=== PATIENT | male | born 1960 | race Caucasian/White ===

== ENCOUNTER → 2016-11-13 | Outpatient (CLI) | payer BC ==
--- NOTE | 2016-11-13 16:57 | PN ---
This is a 54-year-old male patient coming in for a yearly check regarding his obstructive sleep apnea. 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 He is known to have mild ABIGAIL with an AHI of 13.7. He is currently on a CPAP pressure of 12 cm of water. He is still doing well. He is averaging around 6 hours of sleep every night. He goes to bed around 10, wakes up around 5 a.m. in the morning. No major hypersomnia or sleepiness during the day. No sleeping while driving. No drowsiness. Based on the compliance data over the past 30 days, the patient's CPAP use for more than 4 hours is 100%, which is 30 out of 30. His average CPAP use is 5.1 hours per night. He has lost around 22 pounds since last year. He has no specific complaints and no new onset comorbid conditions. HIS CURRENT VITAL SIGNS: BP is 143/77, pulse 100, respiration 16, temperature 98.0. BMI is 35.5. Weight is 207. Height is 5 feet 4 inches. Saturation 96% on room air. GENERAL APPEARANCE: Calm, comfortable. HEENT: Short neck, crowding of the posterior pharynx. No goiter or neck mass. LUNGS: Clear to auscultation. HEART: Sounds are regular rate and rhythm. Normal S1, S2. ABDOMEN: Soft, nontender. No organomegaly. EXTREMITIES: No edema. No cyanosis or clubbing. IMPRESSION: 1. Obstructive sleep apnea with an AHI of 13.5, still on a CPAP pressure of 12 cm of water. The treatment remains successful and the patient is very compliant. 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 3. Diabetes. 4. Hyperlipidemia. 5. Hypertension. 6. Obesity with interval 22-pound weight loss. Current BMI is 35. PLAN: 1. Treatment remains successful. No need for any CPAP pressure adjustments. 2. Continue full-face mask; this is being provided to this patient through [employer]. 3. Sleep hygiene measures are all appropriate. 4. Encourage further weight loss. 5. Will be clearing this patient, as the patient has no ongoing issues with his ABIGAIL treatment. No objections again for this patient to have his DOT certification from the ABIGAIL standpoint.
== END | disposition home or self-care (01) ==

== ENCOUNTER → 2018-04-08 | Outpatient (CLI) | payer BC ==
--- NOTE | 2018-04-08 15:18 | PN ---
PROGRESS NOTE 57-year-old male patient coming in for a followup regarding obstructive sleep apnea. 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 On today's evaluation, the patient's compliance data has been somewhat low. He tells me that he had sinusitis and he was unable to wear his CPAP mask because of an acute sinus infection. This may be true knowing that his compliance is improved over the past week as the patient was treated for his acute sinus infection. In general the compliance data over the past 30 days shows an average use of 4.6 hours per night and his CPAP use for more than 4 hours is . I realized the patient utilizing an older generation nose mask which is not comfortable and not causing the adequate seal that is needed for CPAP therapy. I switched him to a wisp nose mask and also given Mirage FX nose mask to try. Both were given samples from my office. Otherwise the patient is not having any major hypersomnia or sleepiness. Delong score is 2. He is averaging good 5-6 hours of sleep per night. He does not fall asleep while driving or doing routine day-to-day activity. As far as his body weight, the patient is stable at 218 pounds which is 2 pounds less compared to his last visit here in the office. REVIEW OF SYSTEMS: 12-point review of system was done. Positive findings are mentioned above in the history of present illness. No history of sleepiness, no motor vehicle accidents because of driving feeling drowsy or sleepy. No numbness or tingling in lower extremities. No pain. No headaches. No dry mouth or heartburn during the day. PHYSICAL EXAMINATION: BP is 139/73, pulse 79, respirations 16, temperature 98.1, saturation 97% on room air. Weight is 218, height is 5 feet 3 inches. Delong score is at 2, BMI 38. GENERAL APPEARANCE: Calm, comfortable. Head atraumatic, normocephalic. NECK: Supple. There is no JVD. No goiter or neck masses. Crowding of posterior pharynx, Mallampati class IV. LUNGS: Clear to auscultation. HEART: Sounds regular rhythm. Normal S1, S2. No S3. No murmurs. ABDOMEN: Soft, nontender. No organomegaly. EXTREMITIES: No edema. No cyanosis or clubbing. NEUROLOGIC: Alert and oriented x3. No focal neurological deficits. SKIN: Negative for wounds or ulceration. IMPRESSION: 1. Obstructive sleep apnea, AHI of 15.5, continues to be on CPAP at a pressure of 12 cm of water. The patient is using a ResMed S9 CPAP unit. 2. Recent drop in compliancy to CPAP secondary to sinus infection. 3. Acute sinus infection, recovered. 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 5. Diabetes mellitus. 6. Hypertension. 7. Hyperlipidemia. 8. Obesity with interval 2 pounds weight loss. PLAN: 1. Encourage weight loss. 2. Encourage putting more number of hours on the CPAP machine utilizing it every night more than 4 hours. 3. Offer this patient wisp nose mask. 4. He will go back to for DOC certification. I think he should need to put more hours trying to achieve at least 70% of CPAP use for more than 4 hours. This is easily achievable as long as the patient does not have an acute sinus infection. His sinus infection has been successfully treated. See me back in a year's time in followup. MMODL / IJN: [id number] /
== END | disposition home or self-care (01) ==
LOC: SLEEP 13:27
PROVIDERS: ATTEND Internal Medicine Critical Care Medicine
DX: G47.33 Obstructive sleep apnea (adult) (pediatric) (principal); E11.9 Type 2 diabetes mellitus without complications; I10 Essential (primary) hypertension; E78.5 Hyperlipidemia, unspecified; E66.9 Obesity, unspecified; Z99.89 Dependence on other enabling machines and devices; R63.4 Abnormal weight loss; Z68.38 Body mass index [BMI] 38.0-38.9, adult

== ENCOUNTER → 2019-06-30 | Outpatient (CLI) | payer BC ==
--- NOTE | 2019-06-30 13:58 | P.PN ---
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 The patient was diagnosed having ABIGAIL and the patient is a [id number] case with an AHI of 15.7 and he was treated with CPAP at a pressure of 12 cm of water. History using a ResMed S9 CPAP unit which is set at a CPAP pressure of 12 cm of water. He is doing very well. Is compliant to his therapy. He was able to have his DOT certification renewed. He has lost weight in order of 11 pounds over this past 1 year. He used to weigh 218 pounds and currently is down to 207. Is able to drive without any major difficulties. He seems to be alert and awake during the day. 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 He goes to bed between 8 and 9 PM and he gets up 4 AM in the morning. No hypersomnia and sleepiness. Based on the compliance data that was collected between 03/08/2019 and 06/05/2019, over this past 90 days, the patient used his CPAP more than 4 hours 90% of the time. He was averaging 5 hours and 33 minutes of CPAP use per night. He is using a Wisp nose mask. Very compliant. No complaints otherwise for now. No morning headaches. No altered mentation. Note nighttime chest pain or heartburn or shortness of breath. No other significant events or any new onset medical problems and comorbidities over the past 12 months. Review of system A 14 point review of system was done and the positive findings are almost above history of present illness. No altered mentation, no falls, no motor vehicle accidents, no episodes of falling asleep while driving, no sleepwalking, no sle ep talking, no restlessness in lower extremities, no nausea or vomiting or abdominal pain. No chest pain or palpitation. No shortness of breath. No pneumonias. No other complications otherwise for now. Objective - Vital Signs Vital signs: BP is 124/65, pulse is 76, respirations 16, temperature 90.3, BMI 36, weight is 207, height is 5 feet and 3 inches, saturation 97% on room air The patient appeared well nourished and normally developed. Vital signs as documented. Head exam is unremarkable. No scleral icterus or corneal arcus noted. Neck is without jugular venous distension, thyromegaly, or carotid bruits. Carotid upstrokes are brisk bilaterally. Lungs are clear to auscultation and percussion. Cardiac exam reveals the PMI to be normally sized and situated. Rhythm is regular. First and second heart sounds normal. No murmurs, rubs or gallops. Abdominal exam reveals normal bowel sounds, no masses, no organomegaly and no aortic enlargement. Extremities are nonedematous and both femoral and pedal pulses are normal.Examination of the skin revealed no evidence of significant rashes, suspicious appearing nevi or other concerning lesions. 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 Continue CPAP at a pressure of 12 cm of water. Continue the patient's nose mask. The new the tubing and filters and supplies. Encourage further weight loss. The patient is compliant is awake and alert. 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 He has obtained his DOT certification. Would like to extend his sleep our further. Would like to see him back in the sleep center in a year's time.
== END | disposition home or self-care (01) ==
LOC: SLEEP 13:24
PROVIDERS: ATTEND Internal Medicine Critical Care Medicine
DX: G47.33 Obstructive sleep apnea (adult) (pediatric) (principal); E11.9 Type 2 diabetes mellitus without complications; I10 Essential (primary) hypertension; E78.5 Hyperlipidemia, unspecified; E66.9 Obesity, unspecified; Z99.89 Dependence on other enabling machines and devices

== ENCOUNTER → 2020-07-26 | Outpatient (CLI) | payer BC ==
--- NOTE | 2020-07-26 16:31 | PN ---
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 He has obtained his DOT certification. Continues to be very compliant with CPAP. He has an older generation ResMed S9 series and the patient is set at a pressure of 12 cm of water. Based on a 30 day compliancy, the patient has been averaging around 5.8 hours of CPAP use per night and he goes to bed around 8:00 pm, wakes up at 3:15 am in the morning. He is quite refreshed and alert during the day. He does not fall asleep while driving. His weight is up during COVID crisis and the patient is up to 221 pounds from a baseline of 207. He is currently using a WISP large-sized nose pillow. Doing well. No new-onset comorbidities. He is refreshed during the day. No naps during the day. No chest pain. No shortness of breath. No heartburn. No sleepwalking or sleeptalking. No anxiety. No depression. No other comorbidities. REVIEW OF SYSTEMS: A 14-point review of system was done, positive findings are mentioned in history of present illness. PHYSICAL EXAMINATION: BP is 135/74, pulse 94, respirations 16, temperature 98.4, saturation 97% on room air. Height is 5, 4, weight is 221, BMI 37.9. GENERAL APPEARANCE: Calm, comfortable, head atraumatic, normocephalic. NECK: Supple, there is no JVD. No goiter or neck mass, Mallampati class 4. LUNGS: Clear to auscultation. HEART: Heart sounds are regular rate and rhythm, normal S1, S2. No S3, S4. No murmurs. ABDOMEN: Soft, nontender, no organomegaly. EXTREMITIES: No edema, no cyanosis or clubbing. NEUROLOGIC: Awake, alert. There is no focal neurological deficit. IMPRESSION: 1. Obstructive sleep apnea, adequately treated with CPAP at a pressure of 12 cm of water. 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 Obesity with interval weight gain. 4. Diabetes. 5. Hypertension. 6. Hyperlipidemia. PLAN: 1. Encourage losing weight. 2. Continue CPAP therapy at the same level of pressure and refills were given including the WISP large-sized nose mask. 3. DOT certification has been obtained and the patient is considered to be at lower no risk of falling asleep while driving and his sleep apnea is adequately treated. See me back in a year's time. MMSHA / TABATHAN: [id number] /
== END | disposition home or self-care (01) ==
LOC: SLEEP 13:57
PROVIDERS: ATTEND Internal Medicine Critical Care Medicine
DX: G47.33 Obstructive sleep apnea (adult) (pediatric) (principal); E11.9 Type 2 diabetes mellitus without complications; E66.9 Obesity, unspecified; I10 Essential (primary) hypertension; E78.5 Hyperlipidemia, unspecified; Z99.89 Dependence on other enabling machines and devices

== ENCOUNTER → 2024-04-08 | Outpatient (CLI) | payer BC ==
[2024-04-08 10:26] LABS: INR 0.9 (<1.2); Partial Thromboplastin Time 25.2 sec (22.0-30.0); Prothrombin Time 10.3 sec (10.0-12.5)
[2024-04-08 16:29] LABS: HCT 38.3 % (39.6-50.0); HGB 13.5 g/dL (13.0-17.0); MCH 29.1 pg (27.0-32.0); MCHC 35.2 g/dL (32.0-37.0); MCV 82.5 FL (80.0-97.0); Mean Platelet Volume 10.7 FL (9.5-12.2); NRBC Per 100 WBC 0 X 10*3/uL (0.00-0.01); Platelet Count 203 X 10*3/uL (140-440); RBC 4.64 X 10*6/uL (4.40-5.60); RDW 13.1 % (11.5-14.5); WBC 8.67 X 10*3/uL (4.50-10.00)
[2024-04-08 18:06] LABS: ALT 15 U/L (10-49); AST 17 U/L (14-35); Albumin 4.4 g/dL (3.8-4.9); Alkaline Phosphatase 100 U/L (41-126); BUN/Creat Ratio 15.12 Ratio (12.00-20.00); Blood Urea Nitrogen 12.1 mg/dL (9.0-27.0); Calcium 9.5 mg/dL (8.7-10.3); Carbon Dioxide 23.4 mmol/L (21.6-31.8); Globulin 2.1 g/dL (1.6-3.3); Glucose 102 mg/dL (70-110); Total Bilirubin 0.5 mg/dL (0.3-1.2); Total Protein 6.5 g/dL (6.2-8.2)
[2024-04-08 22:56] LABS: Chloride 103 mmol/L (96-109); Potassium 3.8 mmol/L (3.5-5.5); Sodium 141 mmol/L (135-145)
== END | disposition home or self-care (01) ==
LOC: LABWHC1 09:31
PROVIDERS: ATTEND Orthopaedic Surgery
DX: Z01.818 Encounter for other preprocedural examination (principal); M16.11 Unilateral primary osteoarthritis, right hip; Z22.322 Carrier or suspected carrier of Methicillin resistant Staphylococcus aureus; R94.31 Abnormal electrocardiogram [ECG] [EKG]
CPT/HCPCS: 36415; 80053; 85027; 85610; 85730; 86850; 86900; 86901; 87070; 93005

== ENCOUNTER 2024-04-20 05:34 | Day surgery (SDC) | payer BC, MEDICARE ==
[2024-04-16 15:33] VITALS: BMI 36.3
[~2024-04-20 05:34] MED LIST: TRANEXAMIC 1,000 MG/100ML-NACL 1,000 MG in SALINE 1 100ML.BAG IVPB PRN
[2024-04-20 06:31] LABS: Glucose,Whole Blood 131 mg/dL (70-110)
[2024-04-20] MEDS: DEXAMETHASONE SOD PHOSPHATE 4 MG/ML 1 ML VIAL IV ONE (06:46)
[2024-04-20] MEDS: LACTATED RINGERS 1,000 ML IV SCH (06:46)
[2024-04-20] MEDS: ONDANSETRON 4 MG/2 ML VIAL IVP ONE (06:46)
[2024-04-20] MEDS: MELOXICAM 7.5 MG TAB PO PRN (06:47)
[2024-04-20] MEDS: GABAPENTIN 300 MG CAP PO PRN (06:47)
[2024-04-20] MEDS: ACETAMINOPHEN TAB 500 MG TAB PO PRN (06:47)
[2024-04-20] MEDS: IV FLUID CONTINUATION 1,000 ML IV ONE (06:53)
[2024-04-20] MEDS ORDERED: MIDAZOLAM 2 MG/2 ML VIAL IV PRN (07:00)
[2024-04-20] MEDS: MIDAZOLAM 2 MG/2 ML VIAL IVP ONE (07:07)
[2024-04-20] MEDS: ceFAZolin 1,000 MG in SODIUM CHLORIDE 0.9% 1,000 ML IRRIGATION ONE (07:18)
[2024-04-20] MEDS: SODIUM CHLORIDE 0.9% 100 ML with ceFAZolin 3,000 MG IV ONE (07:18)
[2024-04-20] MEDS: ROPIVACAINE 5 MG/ML 30 ML VIAL MISCELLANE ONE ×2 (07:51→08:38)
--- NOTE | 2024-04-20 08:44 | P.OP ---
Date of Procedure: 04/20/24 Preoperative Diagnosis: Severe osteoarthritis right hip Postoperative Diagnosis: Severe osteoarthritis right hip Procedure(s) Performed: Right total hip arthroplasty with a direct anterior approach Implants: [employer] Polarstem standard size 4 with a collar [employer] R3, 3 hole hemispherical acetabular shell, 54 mm [employer] Reflection 6.5 mm cancellus screw, 20 mm 2 [employer] R3, XLPE 20 acetabular liner [employer] Oxinium femoral head 36 mm, +4 All components were press-fit. The articulation is Oxinium on polyethylene. Anesthesia: spinal Surgeon: Alexy Vergara Configuration Management Advisor #1: Key Jett Estimated Blood Loss (ml): 350 Pathology: none sent Condition: stable Disposition: PACU Indications for Procedure: After failure of conservative treatment we discussed the surgical and nonsu rgical treatment options at length. Patient wishes to proceed with a total hip arthroplasty with a direct anterior approach. Complications specific to this procedure were discussed at length, including but not limited to infection, leg length discrepancy, dislocation, nerve injury, and fracture. Covid-19 was also discussed at length with the patient, and they are aware of the current policies and procedures. The patient was given the option of delaying surgery, but they elect to proceed knowing these risks. Patient is aware of all these complications and informed consent was obtained Operative Findings: The operative findings are consistent with severe osteoarthritis of the right hip Description of Procedure: The patient was seen and evaluated in the preoperative area and the consent was reviewed. The operative site was marked with a skin marker. The patient verified the procedure and operative site. A RICH block was placed by anesthesia in the preoperative area. The patient was then brought to the operating room and given preoperative antibiotics intravenously. 1 g of Tranexamic acid was also given intravenously. A spinal anesthetic was administered by the anesthesia department. The patient was then placed on the George table with the bony prominences well-padded. The hip area was then prepped with a ChloraPrep solution and draped in the usual sterile fashion. A universal timeout was then performed, which confirmed the patient's name, surgical site, ALLERGIES, and procedure being performed on the consent. Next the incision site was located at 1 cm distal and 4 cm lateral to the anterior superior iliac spine. The skin and subcutaneous tissues were sharply incised. Incision was carefully dissected down to the fascia overlying the tensor fascia damian muscle. This fascia was then incised in line with the muscle fibers. Care was taken to stay laterally in order to avoid injuring the lateral femoral cutaneous nerve. Next, using blunt finger dissection, the tensor fascia damian muscle was dissected off its investing fascia. The muscle was then carefully retracted laterally with a cobra retractor over the lateral neck of the femur. Next, the circumflex vessels were identified and cauterized using the Aquamantis device. The anterior hip capsule was then exposed. The capsule was then opened and an inverted T fashion. The retractors were then placed intracapsularly. The retractors were maintained intracapsular throughout the procedure. The proximal femur was then visualized. Fluoroscopic x-rays were then taken in order to evaluate the preoperative leg lengths. A small amount of traction was placed on the leg. The femoral neck was then osteotomized at the appropriate level above the lesser trochanter. A small wedge of bone was then removed from the remaining femoral head. Next, using a corkscrew the femoral head was removed from the acetabulum. On gross visual inspection, the femoral head had complete loss of articular cartilage and multiple periarticular osteophytes. The femoral head was then measured. Attention was then turned to the acetabulum. The acetabulum was exposed and any remaining labrum was excised. Sequential reaming of the acetabulum was performed using fluoroscopic guidance until there was a good bed of bleeding cancellus bone. When the appropriate size was reached, a trial was then placed. The position and fit of the trial was checked with fluoroscopy. The trial was then removed. Then, using fluoroscopic guidance, the final implant was impacted at 20 of anteversion and 40 of abduction, and fully seated in the acetabulum. 2 screws were then placed in the acetabulum. Again fluoroscopy was used to check position of the screws. Next, the liner was then impacted, with a 20 elevated liner located in the anterior superior quadrant. Component locking was confirmed. Attention was then directed to the femur. With the aid of the George table, the femur was externally rotated to approximately 130, extended, and adducted under the opposite leg. A side hook was then placed under the proximal femur, and the side hook elevator was used to elevate the proximal femur while releasing the capsule. Retractors were then placed. A capsular release was performed, as well as a release of the conjoined tendon, which afforded excellent v isualization of the proximal femur. Next, a box osteotome was used to lateralize the proximal femur. A shovel handle assembler was then used to locate the femoral canal. Sequential broaching was then performed with appropriate size which afforded excellent fixation in the proximal femur. A trial was then placed with appropriate head and neck, and the hip was gently reduced with the aid of the George table. Fluoroscopy was then used to check position of the components, as well as to evaluate the leg lengths and offset. The leg lengths and offset were measured as closely as possible to ensure stability of the hip. The hip was then gently dislocated and the trials were then removed. Final implants were then impacted and the hip was again reduced. Final fluoroscopic x-rays confirmed that the components were in anatomic position. The leg lengths and offset were measured and were found to coincide with the trial measurements. The hip was also taken through range of motion, and found to be stable. The hip was then copiously irrigated with antibiotic solution with pulsatile lavage. The hip was then irrigated with Irrisept solution. The soft tissues were then injected with a ropivacaine solution. A second dose of 1 g of Tranexamic acid was also given intravenously. The fascia was then closed with 2-0 strata fix suture. The subcutaneous tissue was closed with 3-0 Vicryl. The subcuticular tissue was closed with 3-0 strata fix suture. The skin was then closed with Exofin skin glue. After the glue and dried, and Optifoam silver impregnated dressing was applied. The patient was t hen transferred to the recovery room in stable condition. The ex assistant/program director RAISA Bolanos was required due to the complexity of surgery, and the need for skilled metal forger's assistant for positioning, draping, exposure, retraction, and closure of the wound.
--- NOTE | 2024-04-20 08:58 | FL ---
EXAMINATION TYPE: FL guidance operating room, XR Hip Limited RT Intraoperative/procedural fluoroscopi c services were provided. Total fluoroscopy time is 2.4 seconds with a total of 3 submitted images to PACS. Please see the operative/procedural note for further details. DAP: 3.674 Gycm2
[2024-04-20] MEDS ORDERED: MAGNESIUM HYDROXIDE 2,400 MG/30 ML CUP PO PRN (09:10)
[2024-04-20] MEDS ORDERED: NALOXONE 0.4 MG/ML 1 ML VIAL IV PRN (09:10)
[2024-04-20] MEDS ORDERED: ONDANSETRON 4 MG/2 ML VIAL IVP PRN (09:10)
[2024-04-20] MEDS ORDERED: HYDROmorphone 0.5 MG/0.5 ML SYRINGE IVP PRN ×3 (09:10)
[2024-04-20] MEDS ORDERED: HYDROcodone/APAP 7.5-325MG 1 EACH TAB PO PRN (09:12)
--- NOTE | 2024-04-20 10:02 | XR ---
EXAMINATION TYPE: XR Hip Limited RT DATE OF EXAM: 04/20/2024 9:29 AM CLINICAL INDICATION:Male, 63 years old with history of Status post hip surgery, assess surgical align ment; [facility] COMPARISON: None. TECHNIQUE: XR Hip Limited RT; hip was examined in the frontal and lateral projections and a AP pelvis . FINDINGS: Post arthroplasty changes, hardware is intact, alignment is appropriate. No evidence of fra cture. Postoperative changes of the soft tissues with subcutaneous gas. No evidence of any acute osse ous pathology or joint dislocation. IMPRESSION: Hip arthroplasty with hardware intact and in appropriate alignment. No acute fracture.
[2024-04-20] MEDS: HYDROmorphone 0.5 MG/0.5 ML SYRINGE IVP PRN (10:06)
[2024-04-20] MEDS: SODIUM CHLORIDE 0.9% 1,000 ML IV ONE (10:09)
[2024-04-20] MEDS: HYDROcodone/APAP 7.5-325MG 1 EACH TAB PO PRN (15:17)
[2024-04-20] MEDS ORDERED: DEXTROSE 50% SYRINGE 50 ML IVP PRN ×2 (15:58)
[2024-04-20] MEDS: PANTOPRAZOLE 40 MG/10 ML VIAL IVP SCH (16:56)
[2024-04-20 17:28] LABS: Glucose,Whole Blood 291 mg/dL (70-110)
[2024-04-20] MEDS: INSULIN ASPART (NovoLOG) 100 UNIT/ML VIAL SQ SCH (18:08)
[2024-04-20 22:27] LABS: Glucose,Whole Blood 228 mg/dL (70-110)
[2024-04-20] MEDS: SODIUM CHLORIDE 0.9% 1,000 ML IV SCH (22:32)
[2024-04-20] MEDS: SENNOSIDES-DOCUSATE SODIUM 1 EACH TAB PO SCH (22:48)
[2024-04-20] MEDS: ASPIRIN 325 MG TAB PO SCH (22:48)
[2024-04-20] MEDS: lisinopriL 10 MG TAB PO SCH (22:49)
[2024-04-21 01:28] VITALS: PULSE 98; RESP 15
[2024-04-21 06:18] LABS: Glucose,Whole Blood 150 mg/dL (70-110)
[2024-04-21 08:27] LABS: Basophils # (A) 0.03 X 10*3/uL (0.00-0.10); Basophils % (A) 0.2 %; Eosinophils # (A) 0.01 X 10*3/uL (0.04-0.35); Eosinophils % (A) 0.1 %; HCT 33.8 % (39.6-50.0); HGB 11.4 g/dL (13.0-17.0); Lymphocytes # (A) 1.35 X 10*3/uL (0.90-5.00); MCH 29.3 pg (27.0-32.0); MCHC 33.7 g/dL (32.0-37.0); MCV 86.9 FL (80.0-97.0); Mean Platelet Volume 10.8 FL (9.5-12.2); Monocytes # (A) 0.78 X 10*3/uL (0.20-1.00); Monocytes % (A) 5.8 %; NRBC Per 100 WBC 0 X 10*3/uL (0.00-0.01); Neutrophils # (A) 11.25 X 10*3/uL (1.80-7.70); Neutrophils % (A) 83.1 %; Platelet Count 223 X 10*3/uL (140-440); RBC 3.89 X 10*6/uL (4.40-5.60); RDW 13.2 % (11.5-14.5); WBC 13.53 X 10*3/uL (4.50-10.00)
[2024-04-21 09:04] LABS: Blood Urea Nitrogen 12.6 mg/dL (9.0-27.0); Chloride 103 mmol/L (96-109); Glucose 161 mg/dL (70-110); Potassium 3.7 mmol/L (3.5-5.5); Sodium 138 mmol/L (135-145)
[2024-04-21 09:05] LABS: Calcium 8.5 mg/dL (8.7-10.3)
--- NOTE | 2024-04-21 09:27 | P.DS ---
Providers Expected date of discharge: 04/21/24 Attending physician: Alexy Vergara Consults: 04/20/24 09:10 Consult Physician Routine Consulting Provider: Saurabh Bocanegra Consult Reason/Comments: medical management Do you want consulting provider notified?: Yes Primary care physician: Eduarda Andujar [facility] Course: This is a 63-year-old male with known history of degenerative arthritis of the right hip. The patient presented for evaluation as an outpatient. After discussion and consideration patient elects to proceed with total hip arthroplasty. The patient is seen preoperatively by Dr. Vergara and medically cleared for surgery by their primary care physician. Patient is admitted to [facility] on 04/20/2024 for total hip arthroplasty. The procedure is performed without complication or sequelae. The patient is doing well postoperatively. Labs and vital signs are stable on day of discharge. On day of discharge patient's hip incision is healing well. There is minimal erythema. There is no drainage noted at this time. There is minimal soft tissue swelling to the hip and thigh. Patient has full foot and ankle motion without difficulty or pain. Calf is soft and nontender to palpation. Neurovascular status to the right lower extremity is intact. Patient is discharged home in good condition. Please see med rec for accurate list of home medications. Plan - Discharge Summary Discharge Rx Participant: No New Discharge Prescriptions: New Aspirin 325 mg PO BID #60 tab HYDROcodone/APAP 7.5-325MG [[place] 7.5-325] 1 - 2 tab PO Q6H PRN #32 tab PRN Reason: Pain Sennosides [Senokot] 2 tab PO DAILY PRN #60 tablet PRN Reason: Constipation No Action metFORMIN HCL [Glucophage] 500 mg PO 1999 lisinopriL [Zestril] 10 mg PO 1999 Vit D3(Unknown Dose) 1 dose PO 1999 Ergocalciferol [Vitamin D2 (1250 Mcg = 32144 Iu)] 50,000 units PO WEEKLY hydroCHLOROthiazide [Hydrodiuril] 12.5 mg PO 1999 Aloe-Belen(Unknown Dose) 1 dose PO 1999 glipiZIDE [glipiZIDE ER] 10 mg PO 1999 Fish Oil/Dha/Epa [Fish Oil 1,200 mg Fish Oil] 1 each PO 1999 Centrum Mens(Unknown Dose) 1 dose PO 1999 Ibuprofen(Unknown Dose) 1 dose PO Q8H PRN PRN Reason: Pain Discharge Medication List Aloe-Belen(Unknown Dose) 1 dose PO 199904/17/24 [History] Centrum Mens(Unknown Dose) 1 dose PO 199904/17/24 [History] Ergocalciferol [Vitamin D2 (1250 Mcg = 75231 Iu)] 50,000 units PO WEEKLY 04/17/24 [History] Fish Oil/Dha/Epa [Fish Oil 1,200 mg Fish Oil] 1 each PO 199904/17/24 [History] Ibuprofen(Unknown Dose) 1 dose PO Q8H PRN 04/17/24 [History] Vit D3(Unknown Dose) 1 dose PO 199904/17/24 [History] glipiZIDE [glipiZIDE ER] 10 mg PO 199904/17/24 [History] hydroCHLOROthiazide [Hydrodiuril] 12.5 mg PO 199904/17/24 [History] lisinopriL [Zestril] 10 mg PO 199904/17/24 [History] metFORMIN HCL [Glucophage] 500 mg PO 199904/17/24 [History] Aspirin 325 mg PO BID #60 tab 04/20/24 [Rx] HYDROcodone/APAP 7.5-325MG [[place] 7.5-325] 1 - 2 tab PO Q6H PRN #32 tab 04/20/24 [Rx] Sennosides [Senokot] 2 tab PO DAILY PRN #60 tablet 04/20/24 [Rx] Follow up Appointment(s)/Referral(s): Alexy Vergara DO [Doctor of Osteopathic Medicine] - 2 Weeks Activity/Diet/Wound Care/Special Instructions: Weightbearing as tolerated with walker. Leave dressing intact. Dressing may be removed by home care nurse or by patient in 7 days. Then change dressing twice daily until follow up. May shower with initial dressing intact and after removal. If dressing become saturated, please remove. Please take aspirin 325mg twice daily for 30 days to prevent blood clots. Recommend use of compression stockings daily until follow up to help prevent swelling and blood clots. May remove at night before sleeping. Please follow-up with [facility] in 2 weeks and call with any questions or concerns, . Discharge Disposition: HOME WITH HOME HEALTH SERVICES
--- NOTE | 2024-04-21 09:40 | P.CONS ---
History of Present Illness - Reason for Consult Consult date: 04/21/24 Medical management DM,HTN,ABIGAIL Requesting physician: Alexy Vergara - Chief Complaint Right hip osteoarthritis, status post anterior approach right total hip art - History of Present Illness This is a 63-year-old gentleman with past medical history significant for morbid obesity, osteoarthritis, diabetes mellitus, hypertension, sleep apnea wears CPAP/BiPAP and multiple other medical issues, status post right total hip arthroplasty with direct anterior approach. Tolerated approach well. Patient has been up ambulating, pain controlled. Positive bowel movement. Denies chest pain, palpitations or shortness of breath. Afebrile, WBC 13.53, renal function stable, blood sugars controlled. Hemoglobin A1c 6. denies chest pain, palpitations or shortness of breath. Maintaining O2 sats in the high 90s on room air. Review of Systems Constitutional: Denied any fatigue denied any fever. Cardio vascular: denied any chest pain, palpitations Gastrointestinal denied any nausea vomiting Pulmonary: Denied any shortness of breath cough Neurologic denied any new focal deficits ROS Statement: Those systems with pertinent positive or pertinent negative responses have been documented in the HPI. ROS Other: All systems not noted in ROS Statement are negative. Past Medical History Past Medical History: Cancer, Diabetes Mellitus, Hearing Disorder / Deafness, Hyperlipidemia, Hypertension, Sleep Apnea/CPAP/BIPAP Additional Past Medical History / Comment(s): Skin cancer. Type II NIDDM. Tinnitis bilat. Wears C-PAP. History of Any Multi-Drug Resistant Organisms: None Reported Past Surgical History: Cholecystectomy Additional Past Surgical History / Comment(s): Parathyroid surgery. Past Anesthesia/Blood Transfusion Reactions: No Reported Reaction Additional Past Anesthesia/Blood Transfusion Reaction / Comm: No hx of blood transfusion. Past Psychological History: No Psychological Hx Reported Smoking Status: Never smoker Past Alcohol Use History: None Reported Past Drug Use History: None Reported - Past Family History Father Family Medical History: Cancer Medications and Allergies Home Medications Medication Instructions Recorded Confirmed Type Aloe-Belen(Unknown Dose) 1 dose PO 199904/17/24 04/20/24 History Centrum Mens(Unknown Dose) 1 dose PO 199904/17/24 04/20/24 History Ergocalciferol [Vitamin D2 (1250 50,000 units PO WEEKLY 04/17/24 04/20/24 History Mcg = 80509 Iu)] Fish Oil/Dha/Epa [Fish Oil 1,200 1 each PO 199904/17/24 04/20/24 History mg Fish Oil] Ibuprofen(Unknown Dose) 1 dose PO Q8H PRN 04/17/24 04/20/24 History Vit D3(Unknown Dose) 1 dose PO 199904/17/24 04/20/24 History glipiZIDE [glipiZIDE ER] 10 mg PO 199904/17/24 04/20/24 History hydroCHLOROthiazide [Hydrodiuril] 12.5 mg PO 199904/17/24 04/20/24 History lisinopriL [Zestril] 10 mg PO 199904/17/24 04/20/24 History metFORMIN HCL [Glucophage] 500 mg PO 199904/17/24 04/20/24 History Aspirin 325 mg PO BID #60 tab 04/20/24 Rx HYDROcodone/APAP 7.5-325MG [Cash 1 - 2 tab PO Q6H PRN #32 tab 04/20/24 Rx 7.5-325] Sennosides [Senokot] 2 tab PO DAILY PRN #60 tablet 04/20/24 Rx Allergies Allergy/AdvReac Type Severity Reaction Status Date / Time No Known Allergies Allergy Verified 04/20/24 06:17 Physical Exam Vitals: Vital Signs Temp Pulse Pulse Resp BP Pulse Ox 04/21/24 08:00 98 97 15 04/21/24 01:25 98.8 F 98 15 129/69 97 04/20/24 20:00 98.4 F 105 H 16 139/73 97 04/20/24 14:25 97.7 F 105 H 18 154/77 96 04/20/24 12:30 97 16 164/79 97 04/20/24 11:30 96 16 162/79 97 04/20/24 11:00 93 16 165/79 97 04/20/24 10:30 87 16 165/79 97 04/20/24 10:00 80 16 163/75 95 04/20/24 09:50 83 16 168/79 97 04/20/24 09:35 80 16 152/78 98 04/20/24 09:20 78 16 147/73 98 Intake and Output 04/20/24 04/21/24 04/21/24 22:59 06:59 14:59 Intake Total 850 Balance 850 Intake: Intake, IV Titration 400 Amount Sodium Chloride 0.9% 1, 350 000 ml @ 70 mls/hr IV . [id number] LEXI Rx#:[id number] ceFAZolin 2 gm In Sodium 50 Chloride 0.9% 50 ml @ 100 mls/hr IVPB Q8HR LEXI Rx# :[id number] Oral 450 Other: Voiding Method Toilet Toilet # Voids 1 2 2 PHYSICAL EXAM: VITAL SIGNS: [As above] GENERAL: Alert and oriented x 3, sitting up in bed, no acute distress HEENT: Normocephalic, atraumatic ,conjunctivae normal. eyes normal. MMM. NECK: Supple, no JVD. CARDIOVASCULAR: S1, S2 regular.No murmur RESPIRATION: Unlabored, equal air entry, breath sounds diminished in the bases. No rhonchi or crackles. No bronchial breathing. ABDOMEN: Soft, nontender . No guarding. no masses palpable.+BS. EXTREMITIES: Right lower extremity dressing, clean dry and intact, no edema. no swelling. No calf tenderness, positive DP pulse. NERVOUS SYSTEM: Cranial N 2-12 grossly normal. No focal deficits.Strength and sensation grossly intact. Skin: Warm and dry, no rash Results CBC & Chem 7: 04/21/24 04:22 04/21/24 04:22 Labs: Abnormal Lab Results - Last 24 Hours (Table) 04/20/24 04/20/24 04/21/24 Range/Units 17:27 22:26 04:22 WBC 13.53 H (4.50-10.00) X 10*3/uL RBC 3.89 L (4.40-5.60) X 10*6/uL Hgb 11.4 L (13.0-17.0) g/dL Hct 33.8 L (39.6-50.0) % Immature Gran # 0.11 H (0.00-0.04) X 10*3/uL Neutrophils # 11.25 H (1.80-7.70) X 10*3/uL Eosinophils # 0.01 L (0.04-0.35) X 10*3/uL Glucose (70-110) mg/dL POC Glucose (mg/dL) 291 H 228 H (70-110) mg/dL Calcium (8.7-10.3) mg/dL 04/21/24 04/21/24 Range/Units 04:22 06:17 WBC (4.50-10.00) X 10*3/uL RBC (4.40-5.60) X 10*6/uL Hgb (13.0-17.0) g/dL Hct (39.6-50.0) % Immature Gran # (0.00-0.04) X 10*3/uL Neutrophils # (1.80-7.70) X 10*3/uL Eosinophils # (0.04-0.35) X 10*3/uL Glucose 161 H (70-110) mg/dL POC Glucose (mg/dL) 150 H (70-110) mg/dL Calcium 8.5 L (8.7-10.3) mg/dL Assessment and Plan Assessment: Right hip osteoarthritis status post right total hip arthroplasty with direct anterior approach Mild leukocytosis, reactive Postoperative atelectasis, expected outcome. Morbid obesity, BMI 37 Obstructive sleep apnea, wears BiPAP/CPAP Diabetes mellitus, hemoglobin A1c 6.0 Hypertension Hyperlipidemia Plan: Continue on current medication regimen ,monitoring and symptomatic treatment. Pain management and DVT prophylaxis as per primary. Aggressive pulmonary toileting with incentive spirometer reinforced. Discharge planning in progress as per orthopedic surgery. Follow-up with PCP in 1 week. Thank you for the consult. The impression and plan of care has been dictated as directed. : I performed a history and examination of this patient, discussed the same with the dictator. I agree with the dictator's note ,documented as a scribe. Any additional findings or plans will be noted.
[2024-04-21 10:23] VITALS: BP 150/79; TEMP 98.4
[2024-04-21] MEDS ORDERED: glipiZIDE 5 MG TAB PO SCH (17:30)
[2024-04-21] MEDS ORDERED: hydroCHLOROthiazide 12.5 MG CAP PO SCH (20:00)
[2024-04-21] MEDS ORDERED: metFORMIN 500 MG TAB PO SCH (20:00)
--- NOTE | 2024-04-22 13:43 | P.ANPRN ---
Procedure Note - Anesthesia - Nerve Block Performed Right Davion Single Time Out Performed: Yes Date of Procedure: 04/20/24 Procedure Start Time: : Procedure Stop Time: 07:13 Location of Patient: PreOp Indication: Acute Post-Operative Pain, Requested by Surgeon Sedation Type: Sedate with meaningful contact maintained Preparation: Sterile Prep (Ropivacaine 0.5% 20 cc plus dexamethasone 4 mg) Position: Supine Needle Types: Pajunk Needle Gauge: 21 Ultrasound used to visualize needle placement: Yes Ultrasound used to observe medication spread: Yes Blood Aspirated: No Pain Paresthesia on Injection Noted: No Resistance on Injection: Normal Image Stored and Saved: Yes Events: Uneventful and Well Tolerated
== END 2024-04-21 11:46 | disposition home health service (06) ==
LOC: OR 05:34 → 4SSUR 08:59 → OR 04-21 11:46
PROVIDERS: ATTEND Orthopaedic Surgery
DX: M16.11 Unilateral primary osteoarthritis, right hip (principal); I10 Essential (primary) hypertension; E78.5 Hyperlipidemia, unspecified; E11.9 Type 2 diabetes mellitus without complications; Z79.84 Long term (current) use of oral hypoglycemic drugs; Z79.899 Other long term (current) drug therapy
CPT/HCPCS: 97161; 97166; 64447; 80048; 85025; 83036; 73501; 27130; C1776; J2250; J1100; J0690 ×3; J2405; J2795; C9113 ×2; J1170

== ENCOUNTER → 2024-10-19 | Outpatient (CLI) | payer MEDICARE ==
[2024-10-19 09:39] LABS: INR 0.9 (<1.2); Partial Thromboplastin Time 24.4 sec (22.0-30.0); Prothrombin Time 10.5 sec (10.0-12.5)
[2024-10-19 14:53] LABS: Basophils % (A) 0.9 %; Eosinophils # (A) 0.44 X 10*3/uL (0.04-0.35); HCT 41.2 % (39.6-50.0); HGB 14.4 g/dL (13.0-17.0); Lymphocytes # (A) 3.27 X 10*3/uL (0.90-5.00); Lymphocytes % (A) 29.8 %; MCH 29.3 pg (27.0-32.0); MCV 83.7 FL (80.0-97.0); Monocytes # (A) 0.58 X 10*3/uL (0.20-1.00); Monocytes % (A) 5.3 %; NRBC Per 100 WBC 0 X 10*3/uL (0.00-0.01); Neutrophils # (A) 6.51 X 10*3/uL (1.80-7.70); Neutrophils % (A) 59.2 %; Platelet Count 228 X 10*3/uL (140-440); RBC 4.92 X 10*6/uL (4.40-5.60); RDW 13.3 % (11.5-14.5); WBC 10.99 X 10*3/uL (4.50-10.00)
[2024-10-19 15:19] LABS: ALT 19 U/L (10-49); AST 19 U/L (14-35); Albumin 4.5 g/dL (3.8-4.9); Albumin/Globulin Ratio 2.05 Ratio (1.60-3.17); Alkaline Phosphatase 107 U/L (41-126); Calcium 9.2 mg/dL (8.7-10.3); Carbon Dioxide 23.5 mmol/L (21.6-31.8); Chloride 103 mmol/L (96-109); Globulin 2.2 g/dL (1.6-3.3); Glucose 136 mg/dL (70-110); Potassium 3.7 mmol/L (3.5-5.5); Sodium 140 mmol/L (135-145); Total Bilirubin 0.5 mg/dL (0.3-1.2); Total Protein 6.7 g/dL (6.2-8.2)
== END | disposition home or self-care (01) ==
LOC: LABPAT 08:43
PROVIDERS: ATTEND Orthopaedic Surgery
DX: Z01.818 Encounter for other preprocedural examination (principal); Z22.322 Carrier or suspected carrier of Methicillin resistant Staphylococcus aureus
CPT/HCPCS: 80053; 85025; 85610; 85730; 86850; 86900; 86901; 87070

== ENCOUNTER 2024-10-26 05:34 | Day surgery (SDC) | payer MEDICARE ==
[2024-10-26] MEDS ORDERED: LIDOCAINE 1% (10MG/ML) FOR IV START INTRADERMA PRN (05:49)
[2024-10-26] MEDS: ACETAMINOPHEN TAB 500 MG TAB PO PRN (06:02)
[2024-10-26] MEDS: MELOXICAM 7.5 MG TAB PO PRN (06:03)
[2024-10-26] MEDS: GABAPENTIN 300 MG CAP PO PRN (06:03)
[2024-10-26 06:27] LABS: Glucose,Whole Blood 170 mg/dL (70-110)
[2024-10-26] MEDS: LACTATED RINGERS 1,000 ML IV SCH (06:28)
[2024-10-26] MEDS: ONDANSETRON 4 MG/2 ML VIAL IVP ONE (06:28)
[2024-10-26] MEDS: IV FLUID CONTINUATION 1,000 ML IV ONE ×2 (06:30→09:48)
[2024-10-26] MEDS: DEXAMETHASONE SOD PHOSPHATE 4 MG/ML 1 ML VIAL IVP STA (06:41)
[2024-10-26] MEDS: fentaNYL (PF) 50 MCG/ML 2 ML AMP IVP STA (06:42)
[2024-10-26] MEDS: MIDAZOLAM 2 MG/2 ML VIAL IV ONE (06:49)
[2024-10-26] MEDS ORDERED: ROPIVACAINE 5 MG/ML 30 ML VIAL ONE (06:55)
[2024-10-26] MEDS ORDERED: ROCURONIUM 10 MG/ML (5 ML VIAL) IV ONE (06:55)
[2024-10-26] MEDS ORDERED: fentaNYL (PF) 50 MCG/ML 2 ML AMP ONE (06:55)
[2024-10-26] MEDS ORDERED: HYDROmorphone (PF) 1 MG/ML ONE (06:55)
[2024-10-26] MEDS ORDERED: ESMOLOL 100 MG/10 ML VIAL ONE (06:55)
[2024-10-26] MEDS ORDERED: TRANEXAMIC 1,000 MG/100ML-NACL PREMIX BAG ONE (06:55)
[2024-10-26] MEDS ORDERED: NEOSTIGMINE 1 MG/ML 10 ML VIAL ONE (06:55)
[2024-10-26] MEDS ORDERED: LABETALOL 5 MG/ML VIAL MDV ONE (06:55)
[2024-10-26] MEDS ORDERED: GLYCOPYRROLATE 0.2 MG/ML 2 ML VIAL ONE (06:55)
[2024-10-26] MEDS ORDERED: SUCCINYLCHOLINE CHLORIDE 200 MG/10 ML VIAL IV ONE (06:55)
[2024-10-26] MEDS ORDERED: LIDOCAINE 1% INJ 10MG/ML (20 ML MDV) ONE (06:55)
[2024-10-26] MEDS ORDERED: PROPOFOL 10 MG/ML 20 ML VIAL IV ONE (06:55)
[2024-10-26] MEDS ORDERED: HYDROmorphone 0.5 MG/0.5 ML SYRINGE IVP PRN ×4 (07:00→08:46)
[2024-10-26] MEDS: ceFAZolin 1,000 MG in SODIUM CHLORIDE 0.9% 1,000 ML IRRIGATION ONE (07:25)
[2024-10-26] MEDS: ROPIVACAINE 5 MG/ML 30 ML VIAL MISCELLANE ONE ×2 (07:34→08:10)
--- NOTE | 2024-10-26 08:15 | P.OP ---
Date of Procedure: 10/26/24 Preoperative Diagnosis: Severe osteoarthritis left hip Postoperative Diagnosis: Severe osteoarthritis left hip Procedure(s) Performed: Left total hip arthroplasty with a direct anterior approach Implants: [employer] Polarstem standard size 3 with a collar [employer] R3, 3 hole hemispherical acetabular shell, 54 mm [employer] Reflection 6.5 mm cancellus screws, 20 mm 2 [employer] R3, XLPE 20 acetabular liner [employer] Oxinium femoral head 36 mm, +0 All components were press-fit. The articulation is Oxinium on polyethylene. Anesthesia: GETA Surgeon: Alexy Vergara Wood Block Artist #1: Key Jett Estimated Blood Loss (ml): 400 Pathology: none sent Condition: stable Disposition: PACU Indications for Procedure: After failure of conservative treatment we discussed the surgical and nonsurgic al treatment options at length. Patient wishes to proceed with a total hip arthroplasty with a direct anterior approach. Complications specific to this procedure were discussed at length, including but not limited to infection, leg length discrepancy, dislocation, nerve injury, and fracture. Covid-19 was also discussed at length with the patient, and they are aware of the current policies and procedures. The patient was given the option of delaying surgery, but they elect to proceed knowing these risks. Patient is aware of all these complications and informed consent was obtained Operative Findings: The operative findings are consistent with severe osteoarthritis of the left hip Description of Procedure: The patient was seen and evaluated in the preoperative area and the consent was reviewed. The operative site was marked with a skin marker. The patient verified the procedure and operative site. A RICH block was placed by anesthesia in the preoperative area. The patient was then brought to the operating room and given preoperative antibiotics intravenously. 1 g of Tranexamic acid was also given intravenously. A general anesthetic was administered by the anesthesia department. The patient was then placed on the [place] table with the bony prominences well-padded. The hip area was then prepped with a ChloraPrep solution and draped in the usual sterile fashion. A universal timeout was then performed, which confirmed the patient's name, surgical site, ALLERGIES, and procedure being performed on the consent. Next the incision site was located at 1 cm distal and 4 cm lateral to the anterior superior iliac spine. The skin and subcutaneous tissues were sharply incised. Incision was carefully dissected down to the fascia overlying the tensor fascia damian muscle. This fascia was then incised in line with the muscle fibers. Care was taken to stay laterally in order to avoid injuring the lateral femoral cu taneous nerve. Next, using blunt finger dissection, the tensor fascia damian muscle was dissected off its investing fascia. The muscle was then carefully retracted laterally with a cobra retractor over the lateral neck of the femur. Next, the circumflex vessels were identified and cauterized using the Aquamantis device. The anterior hip capsule was then exposed. The capsule was then opened and an inverted T fashion. The retractors were then placed intracapsularly. The retractors were maintained intracapsular throughout the procedure. The proximal femur was then visualized. Fluoroscopic x-rays were then taken in order to evaluate the preoperative leg lengths. A small amount of traction was placed on the leg. The femoral neck was then osteotomized at the appropriate level above the lesser trochanter. A small wedge of bone was then removed from the remaining femoral head. Next, using a corkscrew the femoral head was removed from the acetabulum. On gross visual inspection, the femoral head had complete loss of articular cartilage and multiple periarticular osteophytes. The femoral head was then measured. Attention was then turned to the acetabulum. The acetabulum was exposed and any remaining labrum was excised. Sequential reaming of the acetabulum was performed using fluoroscopic guidance until there was a good bed of bleeding cancellus bone. When the appropriate size was reached, a trial was then placed. The position and fit of the trial was checked with fluoroscopy. The trial was then removed. Then, using fluoroscopic guidance, the final implant was impacted at 20 of anteversion and 40 of abduction, and fully seated in the acetabulum. 2 screws were then placed in the acetabulum. Again fluoroscopy was used to check position of the screws. Next, the liner was then impacted, with a 20 elevated liner located in the anterior superior quadrant. Component locking was confirmed. Attention was then directed to the femur. With the aid of the [place] table, the femur was externally rotated to approximately 130, extended, and adducted under the opposite leg. A side hook was then placed under the proximal femur, and the side hook elevator was used to elevate the proximal femur while releasing the capsule. Retractors were then placed. A capsular release was performed, as well as a release of the conjoined tendon, which afforded excellent visua lization of the proximal femur. Next, a box osteotome was used to lateralize the proximal femur. A tug hand was then used to locate the femoral canal. Sequential broaching was then performed with appropriate size which afforded excellent fixation in the proximal femur. A trial was then placed with appropriate head and neck, and the hip was gently reduced with the aid of the [place] table. Fluoroscopy was then used to check position of the components, as well as to evaluate the leg lengths and offset. The leg lengths and offset were measured as closely as possible to ensure stability of the hip. The hip was then gently dislocated and the trials were then removed. Final implants were then impacted and the hip was again reduced. Final fluoroscopic x-rays confirmed that the components were in anatomic position. The leg lengths and offset were measured and were found to coincide with the trial measurements. The hip was also taken through range of motion, and found to be stable. The hip was then copiously irrigated with antibiotic solution with pulsatile lavage. The hip was then irrigated with Irrisept solution. The soft tissues were then injected with a ropivacaine solution. A second dose of 1 g of Tranexamic acid was also given intravenously. The fascia was then closed with 2-0 strata fix suture. The subcutaneous tissue was closed with 3-0 Vicryl. The subcuticular tissue was closed with 3-0 moncryl suture. The skin was then closed with Exofin skin glue. After the glue and dried, and Optifoam silver impregnated dressing was applied. The patient was then transferred to the recovery room in stable condition. The child center assistant RAISA Bolanos was required due to the complexity of surgery, and the need for skilled medical surgical tech for positioning, draping, exposure, retraction, and closure of the wound.
[2024-10-26] MEDS ORDERED: ONDANSETRON 4 MG/2 ML VIAL IVP PRN (08:46)
[2024-10-26] MEDS ORDERED: MAGNESIUM HYDROXIDE 2,400 MG/30 ML CUP PO PRN (08:46)
[2024-10-26] MEDS ORDERED: NALOXONE 0.4 MG/ML 1 ML VIAL IV PRN (08:46)
[2024-10-26] MEDS ORDERED: HYDROcodone/APAP 7.5-325MG 1 EACH TAB PO PRN ×2 (08:48)
--- NOTE | 2024-10-26 08:54 | FL ---
EXAMINATION TYPE: FL guidance operating room DATE OF EXAM: 10/26/2024 HISTORY: Fluoroscopy time Total dose area product (DAP) in uGy*m?, mGy*cm? (or similar): 1.8489 IMPRESSION: 1. Fluoroscopy time. [facility], , 10/26/2024 8:51 AM
--- NOTE | 2024-10-26 08:56 | XR ---
EXAMINATION TYPE: XR Hip Limited LT DATE OF EXAM: 10/26/2024 COMPARISON: NONE CLINICAL INDICATION: Male, 63 years old with history of LEFT ANTERIOR HIP; TECHNIQUE: 5 view submitted. FINDINGS: There is postsurgical change compatible hip replacement surgery. IMPRESSION: 1. Postoperative change. [facility], , 10/26/2024 8:53 AM
[2024-10-26 08:59] VITALS: TEMP 98.3
[2024-10-26] MEDS ORDERED: SODIUM CHLORIDE 0.9% 1,000 ML IV SCH (09:00)
[2024-10-26 09:21] LABS: Glucose,Whole Blood 262 mg/dL (70-110)
[2024-10-26] MEDS: INSULIN ASPART (NovoLOG) 100 UNIT/ML VIAL SQ ONE (09:38)
--- NOTE | 2024-10-26 09:56 | XR ---
EXAMINATION TYPE: XR Hip Limited LT DATE OF EXAM: 10/26/2024 COMPARISON: NONE CLINICAL INDICATION: Male, 63 years old with history of Status post hip surgery, assess surgical estrellita graves; TECHNIQUE: One view submitted. FINDINGS: There is postsurgical change compatible hip replacement surgery. Soft tissue air compatible with rece nt surgery. IMPRESSION: 1. Postoperative change. [facility], , 10/26/2024 9:54 AM
[2024-10-26 11:09] LABS: Glucose,Whole Blood 219 mg/dL (70-110)
[2024-10-26 11:11] VITALS: RESP 18
[2024-10-26 11:12] VITALS: BP 152/89; PULSE 100
--- NOTE | 2024-10-26 13:00 | P.ANPRN ---
Procedure Note - Anesthesia - Nerve Block Performed Left Davion Single Time Out Performed: Yes ([id number]) Date of Procedure: 10/26/24 Procedure Start Time: 06:42 Procedure Stop Time: 06:46 Location of Patient: PreOp Indication: Acute Post-Operative Pain, Requested by Surgeon Specifically requested for management of pain by DrBetty: Alexy Vergara Sedation Type: Sedate with meaningful contact maintained Preparation: Sterile Prep Position: Supine Catheter: None Needle Types: Pajunk Needle Gauge: 21 Ultrasound used to visualize needle placement: Yes Ultrasound used to observe medication spread: Yes Injectate: 0.5% Ropivacaine (see comment for volume) (30cc) Blood Aspirated: No Pain Paresthesia on Injection Noted: No Resistance on Injection: Normal Image Stored and Saved: Yes Events: Uneventful and Well Tolerated
[2024-10-26] MEDS ORDERED: SENNOSIDES-DOCUSATE SODIUM 1 EACH TAB PO SCH (21:00)
== END 2024-10-26 12:17 | disposition home health service (06) ==
LOC: OR 05:34
PROVIDERS: ATTEND Orthopaedic Surgery
DX: M16.12 Unilateral primary osteoarthritis, left hip (principal); G89.18 Other acute postprocedural pain; E11.9 Type 2 diabetes mellitus without complications; E78.5 Hyperlipidemia, unspecified; I10 Essential (primary) hypertension; G72.0 Drug-induced myopathy; E66.9 Obesity, unspecified; G47.33 Obstructive sleep apnea (adult) (pediatric); Z79.899 Other long term (current) drug therapy; Z79.84 Long term (current) use of oral hypoglycemic drugs; Z90.49 Acquired absence of other specified parts of digestive tract; Z96.641 Presence of right artificial hip joint; Z98.890 Other specified postprocedural states
CPT/HCPCS: 97530; 97161; 73501; 27130; J2250; J1100; J0690 ×2; J2405; J3010; J2795; 64999

== ENCOUNTER → 2025-05-04 | Outpatient (CLI) | payer MEDICARE ==
--- NOTE | 2025-05-04 16:52 | FL ---
EXAMINATION TYPE: FL barium swallow DATE OF EXAM: 05/04/2025 3:32 PM COMPARISON: None. CLINICAL INDICATION: Male, 64 years old with history of R04.2 HEMOPTYSIS, sensation of choking when i ngesting liquids for 2 months, Total Fluoroscopy Time: 1 minute 59 seconds Total DAP: 100 mGycm2 44 images obtained. FINDINGS: The swallowing mechanism is normal and hypopharyngeal anatomy is preserved. No diverticulum, esophage al web, or penetration/aspiration is seen. The cervical and thoracic portions have a normal course and caliber caliber. Mild tertiary peristalti c waves are encountered. There is blunting of secondary stripping waves with stagnation of contrast i n the upper to mid esophagus when the patient is processed supine. Eventual clearance with repeat swa llows. The mucosa is normal and no persistent filling defect is encountered. There is a tiny sliding hiatal hernia present. No gastroesophageal reflux seen during the course of t he exam. IMPRESSION: 1. [id number] esophageal dysmotility with stagnating contrast in the upper and mid esophagus wh en the patient is prone/supine. 2. Tiny sliding hiatal hernia. No gastroesophageal reflux identified during the course of the exam. 3. No stricture or other specific abnormality is seen. [facility], , 05/04/2025 4:50 PM
== END | disposition home or self-care (01) ==
LOC: RADFLMAIN 14:33
PROVIDERS: ATTEND Family Medicine
DX: K22.4 Dyskinesia of esophagus (principal); K44.9 Diaphragmatic hernia without obstruction or gangrene; R22.1 Localized swelling, mass and lump, neck
CPT/HCPCS: 74220